=== PATIENT | female | born 1990 | race American Indian/Alaskan Native ===

== ENCOUNTER 2021-01-13 07:06 | Emergency (ER) | payer SELFPAY ==
[2021-01-13 07:17] VITALS: BP 136/103
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
== END 2021-01-13 07:57 | disposition home or self-care (01) ==
LOC: ED 07:06
DX: S83.8X2A Sprain of other specified parts of left knee, initial encounter (principal); Z98.890 Other specified postprocedural states; X58.XXXA Exposure to other specified factors, initial encounter; Y93.89 Activity, other specified; Y92.89 Other specified places as the place of occurrence of the external cause; Y99.8 Other external cause status
CPT/HCPCS: 99281